=== PATIENT | female | born 1945 | race Caucasian/White ===

== ENCOUNTER → 2018-02-15 | Outpatient (CLI) | payer MEDICARE ==
[~2018-02-15] MED LIST: ALBU2.5V11 INH; ALBU8.5H8 INH; AMIO200T PO; ASPI-650 PO; ASPI81TA59 PO; ATOR20TA PO; ATOR20TA9 PO; BUDE10.2 INH; CALC-471 PO; CARV6.252 PO; CELE200C PO; CYCL-259 PO; DIPH25TA2 PO; FLUC200T4 PO; FURO40TA6 PO; GABA300C PO; GEMF600T3 PO; GLIP10TA3 PO; INSU100C5 SC; INSU100I28 SQ-INSULIN; INSU100V11 SC; LINE600T37 PO; LIRA0.6P PO; LISI-167 PO; MAGN400T26 PO; METF10002 PO; METO25TA35 PO; OMNIPAQUE 350 MG/ML, 150 ML BOTTLE ONE; OXYC1TAB7 PO; POLY17PO5 PO; POTA20TA89 PO; PRED20TA PO; TAMS-11 PO; TICA90TA PO; TRAM-47 PO; TRAM50TA2 PO
== END ==
LOC: CFH 09:41
PROVIDERS: ATTEND Physician Assistant Surgical
DX: I70.0 Atherosclerosis of aorta (principal); N28.1 Cyst of kidney, acquired; I25.10 Atherosclerotic heart disease of native coronary artery without angina pectoris; M51.36 Other intervertebral disc degeneration, lumbar region; M51.37 Other intervertebral disc degeneration, lumbosacral region; M41.86 Other forms of scoliosis, lumbar region; I72.8 Aneurysm of other specified arteries; Z90.710 Acquired absence of both cervix and uterus
CPT/HCPCS: 74178; Q9967

== ENCOUNTER 2020-06-25 13:33 | Emergency (ER) | payer MEDICARE ==
[~2020-06-25] VITALS: Ht 165.1 cm; Wt 104.5 kg
[~2020-06-25 13:33] MED LIST changes: +ATOR20TA37 PO; -ATOR20TA9 PO; +DIPH-792 PO; -DIPH25TA2 PO; -GEMF600T3 PO; +GEMF600T8 PO; +LINE600T12 PO; -LINE600T37 PO; -OMNIPAQUE 350 MG/ML, 150 ML BOTTLE ONE
[2020-06-25 13:41] VITALS: BP 186/116
[2020-06-25] MEDS ORDERED: DIPH,PERTUSS(ACELL),TET VAC/PF 0.5 ML IM-VACC ONE ×2 (14:00→15:10)
[2020-06-25] MEDS ORDERED: SODIUM CHLORIDE FLUSH 10ML SYR IVF ONE (14:00)
[2020-06-25 14:07] LABS: BASOPHILS # (AUTO) 0.01 x10^3/uL (0-0.1); BASOPHILS % (AUTO) 0 % (0-1); EOSINOPHILS # (AUTO) 0.33 x10^3/uL (0-0.4); EOSINOPHILS % (AUTO) 4 % (1-7); LYMPHOCYTES # (AUTO) 1.55 x10^3/uL (1-3.4); LYMPHOCYTES % (AUTO) 17 % (22-44); MD NO; MEAN CORPUSCULAR HEMOGLOBIN 28.1 pg (27.0-34.8); MEAN CORPUSCULAR HGB CONC 31.9 g/dL (32.4-35.8); MEAN PLATELET VOLUME 8.1 fL (7.4-10.4); MONOCYTES # (AUTO) 0.43 x10^3/uL (0.2-0.8); MONOCYTES % (AUTO) 5 % (2-9); NEUTROPHILS # (AUTO) 6.98 x10^3/uL (1.8-6.8); NEUTROPHILS % (AUTO) 75 % (42-75); PLATELET COUNT 321 x10^3/uL (130-400); RED BLOOD COUNT 3.89 x10^6/uL (3.82-5.3); RED CELL DISTRIBUTION WIDTH 15.2 % (9.6-15.2)
[2020-06-25 14:18] LABS: ALBUMIN 2.7 g/dL (3.4-5.0); ANION GAP 3 mmol/L (5-15); CALCIUM 9.1 mg/dL (8.5-10.1); CHLORIDE 114 mmol/L (98-107)
[2020-06-25 14:22] LABS: ALANINE AMINOTRANSFERASE 13 U/L (12-78); ALKALINE PHOSPHATASE 89 U/L (45-117); BILIRUBIN,TOTAL 0.3 mg/dL (0.2-1.0); TOTAL PROTEIN 6.7 g/dL (6.4-8.2)
== END 2020-06-25 16:08 | disposition home or self-care (01) ==
LOC: ED 15:30
DX: L03.116 Cellulitis of left lower limb (principal); E11.9 Type 2 diabetes mellitus without complications; I25.2 Old myocardial infarction; J45.909 Unspecified asthma, uncomplicated; I50.9 Heart failure, unspecified; Z90.49 Acquired absence of other specified parts of digestive tract; Z90.710 Acquired absence of both cervix and uterus; Z86.718 Personal history of other venous thrombosis and embolism
CPT/HCPCS: 36415; 80053; 85025; 87040; 90471; 90715; 99284

== ENCOUNTER 2020-06-29 20:02 | Emergency (ER) | payer MEDICARE ==
[~2020-06-29] VITALS: Ht 165.1 cm; Wt 100.0 kg
--- NOTE | 2020-06-29 20:20 | NUR ---
CALL LIGHT IN REACH, BED LOW, ON CONT PULSE OX, B/P. A/OX 4. WAITING FOR ERP EVAL. WILL CONTINUE TO MONITOR. AIDET PROVIDED.
[2020-06-29] MEDS ORDERED: ONDANSETRON 2MG/ML, 2ML IVPush ONE (20:30)
[2020-06-29] MEDS ORDERED: MORPHINE SULFATE 4 MG/ML, 1ML IVPush PRN (20:30)
[2020-06-29] MEDS ORDERED: SODIUM CHLORIDE FLUSH 10ML SYR IVF ONE (20:30)
[2020-06-29] MEDS ORDERED: MORPHINE SULFATE 4 MG/ML, 1ML ONE (20:39)
[2020-06-29] MEDS ORDERED: ONDANSETRON 2MG/ML, 2ML ONE (20:39)
--- NOTE | 2020-06-29 21:10 | NUR ---
NO PAIN AT THIS TIME, VSS, ON CONT PULSE OX. WAITING FOR XRAY. WILL CONTINUE TO MONITOR. IN AND OUT CATH VIA STERILE TECHNIQUE SENT TO LAB.
[2020-06-29 21:21] LABS: BASOPHILS % (AUTO) 1 % (0-1); EOSINOPHILS % (AUTO) 3 % (1-7); LYMPHOCYTES % (AUTO) 12 % (22-44); MEAN CORPUSCULAR HEMOGLOBIN 27.8 pg (27.0-34.8); MEAN CORPUSCULAR HGB CONC 31.4 g/dL (32.4-35.8); MONOCYTES % (AUTO) 7 % (2-9); NEUTROPHILS % (AUTO) 77 % (42-75); PLATELET COUNT 305 x10^3/uL (130-400); RED BLOOD COUNT 3.86 x10^6/uL (3.82-5.3); RED CELL DISTRIBUTION WIDTH 14.8 % (9.6-15.2)
[2020-06-29 21:23] LABS: ALANINE AMINOTRANSFERASE 12 U/L (12-78); ALBUMIN 2.5 g/dL (3.4-5.0); ANION GAP 5 mmol/L (5-15); CALCIUM 8.6 mg/dL (8.5-10.1); CHLORIDE 107 mmol/L (98-107)
[2020-06-29 21:25] LABS: ALKALINE PHOSPHATASE 90 U/L (45-117); BILIRUBIN,TOTAL 0.3 mg/dL (0.2-1.0); CREATININE 1.05 mg/dL (0.55-1.02); TOTAL PROTEIN 6.4 g/dL (6.4-8.2)
--- NOTE | 2020-06-29 21:25 | NUR ---
WAITING FOR XRAYS, PT PLACED BACK ON BED HATFIELD. VSS. CALL CAREY IN REACH, AIDET PROVIDED.
[2020-06-29 21:28] LABS: MD NO
[2020-06-29 21:30] LABS: MICROSCOPIC INDICATED
--- NOTE | 2020-06-30 | NUR ---
CALLED PT FAMILY COMING TO PICK PT UP NOW.
[2020-06-30 00:06] VITALS: BP 144/89
[2020-06-30] MEDS ORDERED: HYDROcodone/APAP 5/325 TABLET PO STA (00:17)
[2020-06-30] MEDS ORDERED: HYDROcodone/APAP 5/325 TABLET ONE (00:20)
--- NOTE | 2020-06-30 00:36 | NUR ---
DC HOME WITH STABLE VS, IN WC WITH SON IN LAW. ALL INSTRUCT GIVEN TO PT AND FAMILY, PT VERBALIZES UNDERSTANDING OF INSTRUCT AND FU. OPIATE INFO GIVEN PT VERBALIZES UNDERSTNAIDNG.
== END 2020-06-30 01:13 | disposition home or self-care (01) ==
LOC: ED 21:37
DX: S39.012A Strain of muscle, fascia and tendon of lower back, initial encounter (principal); R94.31 Abnormal electrocardiogram [ECG] [EKG]; E11.9 Type 2 diabetes mellitus without complications; J44.9 Chronic obstructive pulmonary disease, unspecified; I50.9 Heart failure, unspecified; I25.2 Old myocardial infarction; Z90.49 Acquired absence of other specified parts of digestive tract; Z90.710 Acquired absence of both cervix and uterus; W01.0XXA Fall on same level from slipping, tripping and stumbling without subsequent striking against object, initial encounter; Y93.89 Activity, other specified; Y92.89 Other specified places as the place of occurrence of the external cause; Y99.8 Other external cause status
CPT/HCPCS: 36415; 72131; 72192; 80053; 81001; 85025; 93005; 96374; 96375; 99285; J2270; J2405